=== PATIENT | male | born 1955 | race Caucasian/White ===

== ENCOUNTER 2016-12-24 21:27 | Observation (INO) | payer OTHER ==
[~2016-12-24] VITALS: Ht 170.2 cm; Wt 52.2 kg
[~2016-12-24 21:27] MED LIST: LEVO25TA50 PO
[2016-12-24] MEDS ORDERED: SOD CHLORIDE 0.9% 1,000 ML IV STA (21:58)
[2016-12-24] MEDS ORDERED: ACETAMINOPHEN 500 MG TAB PO STA (22:33)
[2016-12-24 22:44] LABS: ADD SCAN DIFF NO
[2016-12-24 22:46] LABS: BASOPHIL # 0.1 10^3/ul (0.0-0.1); BASOPHILS % 0.8 % (0.0-2.0); EOSINOPHILS # 0.1 10^3/ul (0.0-0.5); EOSINOPHILS % 1.5 % (0.0-7.0); HEMATOCRIT 37.7 % (42.0-52.0); LYMPHOCYTES # 2.9 10^3/ul (0.8-2.9); LYMPHOCYTES % 31.7 % (15.0-51.0); MEAN CORPUSCULAR HEMOGLOBIN 30.5 pg (29.0-33.0); MEAN CORPUSCULAR HGB CONC 34.5 g/dl (32.0-37.0); MEAN CORPUSCULAR VOLUME 88.5 fl (82.0-101.0); MEAN PLATELET VOLUME 9.3 fl (7.4-10.4); MONOCYTE # 0.6 10^3/ul (0.3-0.9); MONOCYTES % 6.6 % (0.0-11.0); NEUTROPHIL # 5.3 10^3/ul (1.6-7.5); PLATELET COUNT 304 10^3/UL (140-415); RED BLOOD COUNT 4.26 10^6/ul (4.70-6.10); RED CELL DISTRIBUTION WIDTH 12.8 % (11.5-14.5); WHITE BLOOD COUNT 9.1 10^3/ul (4.8-10.8)
[2016-12-24 23:02] LABS: ANION GAP 12 (8-16); BLOOD UREA NITROGEN 41 mg/dl (7-20); CALCIUM 9.5 mg/dl (8.4-10.2); CARBON DIOXIDE 29 mmol/L (21-31); CHLORIDE 102 mmol/L (97-110); CREATININE 1.63 mg/dl (0.61-1.24); GLUCOSE 152 mg/dl (70-220); POTASSIUM 3.7 mmol/L (3.5-5.1); SODIUM 139 mmol/L (135-144)
--- NOTE | 2016-12-24 23:15 | RADRPT ---
PROCEDURE: XR Chest. CLINICAL INDICATION: Syncope. TECHNIQUE: Single frontal chest x-ray. COMPARISON: Chest radiograph 11/30/2008. FINDINGS: The cardiomediastinal silhouette is unremarkable. No pneumothorax, pleural effusion or consolidation is seen. No acute osseous abnormality is noted. IMPRESSION: 1. No acute cardiopulmonary abnormality. RPTAT: HFN .Stacey Mccullough MD, Date Time Electronically viewed and signed by .Stacey Mccullough MD, on 12/24/2016 23:15 .N/
[2016-12-24 23:21] LABS: TROPONIN-I < 0.012 ng/ml (0.00-0.12)
[2016-12-24 23:25] LABS: ADD UMIC NO; URINE BILIRUBIN (Dip) NEGATIVE (NEGATIVE); URINE BLOOD (Dip) NEGATIVE (NEGATIVE); URINE COLOR YELLOW (YELLOW); URINE GLUCOSE (Dip) NEGATIVE (NEGATIVE); URINE KETONES (Dip) TRACE (NEGATIVE); URINE LEUKOCYTE ESTERASE (Dip) NEGATIVE (NEGATIVE); URINE NITRITE (Dip) NEGATIVE (NEGATIVE); URINE TOTAL PROTEIN (Dip) NEGATIVE (NEGATIVE); URINE UROBILINOGEN (Dip) 0.2 E.U./dL (0.1-1.0)
--- NOTE | 2016-12-24 23:25 | RADRPT ---
PROCEDURE: CT head, without contrast. CLINICAL INDICATION: Syncope. TECHNIQUE: Noncontrast CT examination of the head, with axial, sagittal and coronal reformatted im ages. Automated dose exposure control was employed. CTDI: 51.11 and DLP: 817.78. COMPARISON: 12/01/2018. FINDINGS: Chronic changes of atrophy and small vessel disease white matter are advanced over interval since . No acute hemorrhage. Subarachnoid spaces are substantially preserved and symmetric. Ventricles ar e unremarkable. Dystrophic calcifications again seen at barnard-white matter junction throughout the bilateral cerebral hemispheres, in the bilateral basal ganglia and throughout the bilateral cerebellum, greatest in th e cerebellum. Findings suggest manifestation of Fahr syndrome, and are without significant change ov er interval since 12/01/2008 No mass effect. Barnard-white matter distinction is preserved without evident decreased attenuation t o suggest acute or recent infarct. Sinuses and osseous structures are unremarkable. IMPRESSION: 1. Dystrophic calcifications again seen throughout the bilateral cerebral hemispheres and cerebellu m, suggesting manifestation of Fahr syndrome. 2. These findings are similar in appearance to examination dated 12/01/2008. 3. Chronic changes of atrophy and small vessel disease white matter are advanced over interval sinc e 12/01/2008. 4. Otherwise, no acute process in the head. RPTAT: UU Physician Estiven Date Time Electronically viewed and signed by Physician Estiven on 12/24/2016 23:25 RS/
--- NOTE | 2016-12-24 23:56 | ERA ---
ER Documentation Chief Complaint Date/Time DATE: 12/24/16 TIME: 23:49 Chief Complaint syncopal episodes x 2 today w/ trauma to left eye and left side head HPI This a 61-year-old male who is brought in for syncope. The patient's has a mental delay. The sister is here with the patient and she states that he was walking back from the bathroom today and got very dizzy all of a sudden started to sway back and forth and fell against the bed. He did not lose consciousness. She said a few hours later she heard him fall and she ran into the room and found him on the floor with bleeding from his scalp. The patient does not remember what happened. The patient is a poor historian. The patient is not complaining of any headache neck pain chest pain back pain abdominal pain extremity pain no focal neurological complaints. Sister says that she thinks he has been getting weaker and weaker as of lately ROS All systems reviewed and are negative except as per history of present illness. Medications Home Meds Reported Medications Levothyroxine Sodium* (Levoxyl*) 25 Mcg Tablet, 25 MCG PO AC BREAKFAST, TAB 06/09/15 Allergies Allergies: Coded Allergies: No Known Drug Allergy (Verified Allergy, Unknown, 06/09/15) PMhx/Soc History of Surgery: No Anesthesia Reaction: No Hx Neurological Disorder: No Hx Respiratory Disorders: No Hx Cardiac Disorders: No Hx Psychiatric Problems: No Hx Miscellaneous Medical Probl: No (mental problem (unspecified), kidney problem ) Hx Alcohol Use: No Hx Substance Use: No Hx Tobacco Use: No Smoking Status: Never smoker FmHx Family History: No coronary disease Physical Exam Vitals Vital Signs Date Time Temp Pulse Resp B/P Pulse Ox O2 Delivery O2 Flow Rate FiO2 12/24/16 21:53 82 16 127/84 100 Room Air 12/24/16 21:35 97.0 88 18 112/66 100 Physical Exam Const: Well-developed, well-nourished Head: Small 1 cm left vertex scalp laceration no bleeding, normocephalic Eyes: Normal Conjunctiva, PERRLA, EOMI, normal sclera, no nystagmus ENT: Normal External Ears, Nose and Mouth, moist mucus membranes. Neck: Full range of motion. No meningismus, no lymphadenopathy. Resp: Clear to auscultation bilaterally, no wheezing, rhonchi, rales Cardio: Regular rate and rhythm, no murmurs, S1 S2 present Abd: Soft, non tender x 4, non distended. Normal bowel sounds, no guarding or rebound, no pulsitile abdominal masses or bruits Skin: No petechiae or rashes, no ecchymosis , no maculopapular rash Back: No midline or flank tenderness Ext: No cyanosis, or edema, FROM x 4, normal inspection, neurovascularly intact x 4 Neur: Awake and alert, STR 5/5 x 4, sensation intact x 4, no focal findings, cerebellum intact Psych: Normal Mood and Affect Result Diagram: 12/24/16222712/24/162227 Results 24 hrs Laboratory Tests Test 12/24/16 22:06 12/24/16 22:28 Urine Color YELLOW Urine Clarity CLEAR Urine pH 5.5 Urine Specific [place] 1.025 Urine Ketones TRACE Urine Nitrite NEGATIVE Urine Bilirubin NEGATIVE Urine Urobilinogen 0.2 E.U./dL Urine Leukocyte Esterase NEGATIVE Urine Hemoglobin NEGATIVE Urine Glucose NEGATIVE% Urine Total Protein NEGATIVE White Blood Count 9.110^3/ul Red Blood Count 4.2610^6/ul Hemoglobin 13.0g/dl Hematocrit 37.7% Mean Corpuscular Volume 88.5fl Mean Corpuscular Hemoglobin 30.5pg Mean Corpuscular Hemoglobin Concent 34.5g/dl Red Cell Distribution Width 12.8% Platelet Count 86556^3/UL Mean Platelet Volume 9.3fl Neutrophils % 59.0% Lymphocytes % 31.7% Monocytes % 6.6% Eosinophils % 1.5% Basophils % 0.8% Nucleated Red Blood Cells % 0.0/100WBC Neutrophils # 5.310^3/ul Lymphocytes # 2.910^3/ul Monocytes # 0.610^3/ul Eosinophils # 0.110^3/ul Basophils # 0.110^3/ul Nucleated Red Blood Cells # 0.010^3/ul Sodium Level 139mmol/L Potassium Level 3.7mmol/L Chloride Level 102mmol/L Carbon Dioxide Level 29mmol/L Anion Gap 12 Blood Urea Nitrogen 41mg/dl Creatinine 1.63mg/dl Glucose Level 152mg/dl Calcium Level 9.5mg/dl Troponin I < 0.012ng/ml Current Medications Medications (Trade) Dose Ordered Sig/Emmett Route PRN Reason Start Time Stop Time Status Last Admin Dose Admin Sodium Chloride (NS) 1,000 ml @ 1,000 mls/hr Q1H STAT IV 12/24/16 21:58 12/24/16 22:57 DC 12/24/16 22:35 Acetaminophen (Tylenol Tab) 1,000 mg ONCE STAT PO 12/24/16 22:33 12/24/16 22:38 DC 12/24/16 22:47 Procedures/MDM Laceration Repair by me: Anesthesia: 1% lidocaine locally Location: Scalp Tendon/Joint/Nerves: No injury Foreign body: None detected after copious irrigation and exploration Technique: Staple 1 Complexity: No subcutaneous sutures/mucosal repair/ edge excision Post Closure Length: 1] cm Patient's bleeding was easily controlled in the department and there is no indication of anemia. No evidence of compartment syndrome, neurologic injury, vascular injury, open joint, tendon laceration, or foreign body. Patient is appropriate for outpatient follow up. 48 hour wound check. Scar minimization instructions given. PROCEDURE: CT head, without contrast. CLINICAL INDICATION: Syncope. TECHNIQUE: Noncontrast CT examination of the head, with axial, sagittal and coronal reformatted images. Automated dose exposure control was employed. CTDI: 51.11 and DLP: 817.78. COMPARISON: 12/01/2018. FINDINGS: Chronic changes of atrophy and small vessel disease white matter are advanced over interval since 12/01/2008. No acute hemorrhage. Subarachnoid spaces are substantially preserved and symmetric. Ventricles are unremarkable. Dystrophic calcifications again seen at barnard-white matter junction throughout the bilateral cerebral hemispheres, in the bilateral basal ganglia and throughout the bilateral cerebellum, greatest in the cerebellum. Findings suggest manifestation of Fahr syndrome, and are without significant cell changer interval since 12/01/2008 No mass effect. Barnard-white matter distinction is preserved without evident decreased attenuation to suggest acute or recent infarct. Sinuses and osseous structures are unremarkable. IMPRESSION: 1. Dystrophic calcifications again seen throughout the bilateral cerebral hemispheres and cerebellum, suggesting manifestation of Fahr syndrome. 2. These findings are similar in appearance to examination dated 12/01/2008. 3. Chronic changes of atrophy and small vessel disease white matter are advanced over interval since 12/01/2008. 4. Otherwise, no acute process in the head. RPTAT: UU Physician Estiven Date Time Electronically viewed and signed by Physician Estiven on 12/24/2016 23:25 RS/ CC: HAVEN MOORE DO PROCEDURE: XR Chest. CLINICAL INDICATION: Syncope. TECHNIQUE: Single frontal chest x-ray. COMPARISON: Chest radiograph 11/30/2008. FINDINGS: The cardiomediastinal silhouette is unremarkable. No pneumothorax, pleural effusion or consolidation is seen. No acute osseous abnormality is noted. IMPRESSION: 1. No acute cardiopulmonary abnormality. RPTAT: HFN .Stacey Mccullough MD, MD Date Time Electronically viewed and signed by .Stacey Mccullough MD, on 12/24/2016 23: 15 .N/ CC: HAVEN MOORE DO EKG: Rate/Rhythm: Normal sinus rhythm, incomplete right bundle branch block QRS, ST, T-waves: No changes consistent w/ acute ischemia Impression: No evidence of ischemia or arrhythmia Patient's syncopal symptoms are unstable at this time and require inpatient workup. No evidence of PE or dissection at this time but occult ischemia or fatal dysrhythmia cannot be ruled out. Departure Diagnosis: Primary Impression: Syncope Qualified Code: R55 - Syncope, unspecified syncope type Condition: Stable HAVEN MOORE DO Dec 24, 2016 23:56
[2016-12-24] MEDS ORDERED: SOD CHLORIDE 0.9% 1,000 ML IV SCH (23:57)
[2016-12-25] VITALS (12 sets, daily range): BP systolic 114–150; BP diastolic 67–72; PULSE 58–72; RESP 17–20; Ht 170.2 cm; Wt 52.2 kg
[2016-12-25] MEDS ORDERED: ACETAMINOPHEN 325 MG TAB PO PRN
[2016-12-25] MEDS ORDERED: morphine 2 MG INJ IV PRN (02:00)
[2016-12-25] MEDS ORDERED: LORAZEPAM 2 MG INJ IV PRN (02:00)
[2016-12-25] MEDS ORDERED: ONDANSETRON 4 MG INJ IV PRN ×2 (02:00)
[2016-12-25] MEDS: ACETAMINOPHEN 325 MG TAB PO PRN (02:24)
[2016-12-25 07:59] LABS: ADD SCAN DIFF NO
[2016-12-25 08:05] LABS: BASOPHIL # 0.1 10^3/ul (0.0-0.1); BASOPHILS % 0.5 % (0.0-2.0); EOSINOPHILS # 0.1 10^3/ul (0.0-0.5); EOSINOPHILS % 1.5 % (0.0-7.0); HEMATOCRIT 35.9 % (42.0-52.0); HEMOGLOBIN 11.9 g/dl (14.0-18.0); LYMPHOCYTES # 2.4 10^3/ul (0.8-2.9); LYMPHOCYTES % 25.6 % (15.0-51.0); MEAN CORPUSCULAR HEMOGLOBIN 29.7 pg (29.0-33.0); MEAN CORPUSCULAR HGB CONC 33.1 g/dl (32.0-37.0); MEAN CORPUSCULAR VOLUME 89.5 fl (82.0-101.0); MEAN PLATELET VOLUME 9.5 fl (7.4-10.4); MONOCYTE # 0.5 10^3/ul (0.3-0.9); MONOCYTES % 5.2 % (0.0-11.0); NEUTROPHIL # 6.3 10^3/ul (1.6-7.5); NEUTROPHILS % 66.9 % (39.0-77.0); PLATELET COUNT 262 10^3/UL (140-415); RED BLOOD COUNT 4.01 10^6/ul (4.70-6.10); WHITE BLOOD COUNT 9.5 10^3/ul (4.8-10.8)
[2016-12-25 08:32] LABS: ALBUMIN 3.8 g/dl (3.3-4.9); ALBUMIN/GLOBULIN RATIO 1.46; BILIRUBIN,INDIRECT 0.5 mg/dl (0-1.1); BILIRUBIN,TOTAL 0.5 mg/dl (0.2-1.3); CREATININE 1.39 mg/dl (0.61-1.24); MAGNESIUM 1.6 mg/dl (1.7-2.5); PHOSPHORUS 4.2 mg/dl (2.5-4.9); POTASSIUM 3.7 mmol/L (3.5-5.1); TOTAL PROTEIN 6.4 g/dl (6.1-8.1)
[2016-12-25] MEDS: LEVOTHYROXINE 25 MCG TAB PO SCH (08:38)
[2016-12-25] MEDS: FAMOTIDINE 20 MG INJ IV SCH (08:38)
--- NOTE | 2016-12-25 12:29 | PN ---
Date/Time of Note Date/Time of Note DATE: 12/25/16 TIME: 12:24 Assessment/Plan VTE Prophylaxis VTE Prophylaxis Intervention: ambulation Lines/Catheters IV [facility] [facility] Urinary Cath still in place: No Assessment/Plan Chief Complaint/Hosp Course Assessment 1. Syncopal episode versus mechanical fall 2. Laceration to scalp status post single staple 3. History of mental disability Plan 1. Ambulate 2. Neurology evaluation, evaluation of CT brain questionable Fahr Syndrome. Disposition Anticipate discharge once cleared by neurology Home health evaluation Primary care physician to remove scalp staple Problems: Subjective 24 Hr Interval Summary Free Text/Dictation Patient is awake alert oriented this morning comfortable at rest no acute distress. Family at bedside. Upon further questioning patient appears to be having mechanical falls with subsequent recent laceration to his scalp. Exam/Review of Systems Vital Signs Vitals Vital Signs Date Time Temp Pulse Resp B/P Pulse Ox O2 Delivery O2 Flow Rate FiO2 12/25/16 12:05 72 12/25/16 11:41 98.6 20 127/72 100 12/25/16 00:25 Room Air Intake and Output 12/24/16 12/24/16 12/25/16 15:00 23:00 07:00 Intake Total 200 ml Output Total 250 ml Balance -50 ml Exam GENERAL: Well-nourished well-developed gentleman complete rest no acute distress VITAL SIGNS: per chart NECK: Supple. No JVD or lymphadenopathy. CARDIAC EXAM: S1, S2. No added sounds or murmurs. CHEST: clear bilaterally, No added sounds, rales or wheezes ABDOMEN: Soft, nontender. No guarding or rebound. EXTREMITIES: No cyanosis, clubbing or edema. NEUROLOGIC: Generalized weakness. No focal deficits. Results Result Diagram: 12/25/1671912/25/16 07 Results 24 hrs Laboratory Tests Test 12/24/16 22:06 12/24/16 22:28 12/25/16 07:20 Urine Color YELLOW Urine Clarity CLEAR Urine pH 5.5 Urine Specific [place] 1.025 Urine Ketones TRACE Urine Nitrite NEGATIVE Urine Bilirubin NEGATIVE Urine Urobilinogen 0.2 E.U./dL Urine Leukocyte Esterase NEGATIVE Urine Hemoglobin NEGATIVE Urine Glucose NEGATIVE Urine Total Protein NEGATIVE White Blood Count 9.1 9.5 Red Blood Count 4.26 L 4.01 L Hemoglobin 13.0 L 11.9 L Hematocrit 37.7 L 35.9 L Mean Corpuscular Volume 88.5 89.5 Mean Corpuscular Hemoglobin 30.5 29.7 Mean Corpuscular Hemoglobin Concent 34.5 33.1 Red Cell Distribution Width 12.8 13.0 Platelet Count 304 262 Mean Platelet Volume 9.3 9.5 Neutrophils % 59.0 66.9 Lymphocytes % 31.7 25.6 Monocytes % 6.6 5.2 Eosinophils % 1.5 1.5 Basophils % 0.8 0.5 Nucleated Red Blood Cells % 0.0 0.0 Neutrophils # 5.3 6.3 Lymphocytes # 2.9 2.4 Monocytes # 0.6 0.5 Eosinophils # 0.1 0.1 Basophils # 0.1 0.1 Nucleated Red Blood Cells # 0.0 0.0 Sodium Level 139 138 Potassium Level 3.7 3.7 Chloride Level 102 108 Carbon Dioxide Level 29 24 Anion Gap 12 10 Blood Urea Nitrogen 41 H 31 H Creatinine 1.63 H 1.39 H Glucose Level 152 104 # Calcium Level 9.5 9.0 Troponin I < 0.012 Phosphorus Level 4.2 Magnesium Level 1.6 L Total Bilirubin 0.5 Direct Bilirubin 0.00 Indirect Bilirubin 0.5 Aspartate Amino Transf (AST/SGOT) 22 Alanine Aminotransferase (ALT/SGPT) 26 Alkaline Phosphatase 99 Total Protein 6.4 Albumin 3.8 Globulin 2.60 Albumin/Globulin Ratio 1.46 Medications Medications Current Medications Atorvastatin Calcium (Lipitor) 20 mg HS PO ; Start 12/25/16 at 21:00 Famotidine (Pepcid Iv) 20 mg DAILY IV Last administered on 12/25/16 08:38; Admin Dose 20 MG; Start 12/25/16 at 09:00 Lorazepam (Ativan) 1 mg Q3 PRN IV ANXIETY; Start 12/25/16 at 02:00 Acetaminophen (Tylenol Tab) 650 mg Q6H PRN PO PAIN AND OR ELEVATED TEMP Last administered on 12/25/16 02:24; Admin Dose 650 MG; Start 12/25/16 at 02:00 Morphine Sulfate (morphine) 2 mg Q4H PRN IV Pain; Start 12/25/16 at 02:00 Ondansetron HCl (Zofran Inj) 4 mg Q6H PRN IV NAUSEA AND/OR VOMITING; Start 12/25 at 02:00 CRISTIANA HENSON MD, FCCP December 25, 2016 12:29
[2016-12-25] MEDS ORDERED: ATORVASTATIN 20 MG TAB PO SCH (21:00)
--- NOTE | 2016-12-25 21:53 | RADRPT ---
PROCEDURE: Carotid ultrasound CLINICAL INDICATION: Syncope, carotid bruits TECHNIQUE: Barnard scale, color doppler, spectral doppler ultrasound of the bilateral carotid and marci tebral arteries. This study indirectly references the measurement of the distal ICA diameter as the denominator for s tenosis measurement. Validated velocity measurements with angiographic measurements, velocity criter ia are extrapolated from diameter data as defined by: *Cartoid artery stenosis: barnard-scale and Doppl er US diagnosis. Society of Radiologists in Ultrasound Consensus Conference. Radiology 2003; 229: 34 0-346. SRU Consensus Conference Criteria for the Diagnosis of Carotid Artery Stenosis* Degree of Stenosis, % ICA PSV, cm/sec Plaque Estimate, % ICA/CCA PSV Ratio Normal <125 None <2.0 <50 <125 <50 <2.0 50 69 125-230 >50 2.0-4.0 >70 but less than near occlusion >230 >50 <4.0 Near occlusion High, low, or undetectable Visible Variable Total occlusion Undetectable Visible, no detectable lumen Not applicable COMPARISON: No prior studies are available for comparison. FINDINGS: Location Right CCA54 cm/sec Prox ICA 33 cm/sec Mid ICA48 cm/sec Dist ICA39 cm/sec ECA35 cm/sec ICA/CCA0.9 Left CCA56 cm/sec Prox ICA 47 cm/sec Mid ICA41 cm/sec Dist ICA45 cm/sec ECA35 cm/sec ICA/CCA0.8 Plaque burden: No significant plaque is seen. Antegrade flow is seen within the vertebral arteries bilaterally. IMPRESSION: No evidence of a hemodynamically significant carotid stenosis. RPTAT: AADD .Patricio Vickers MD, Date Time Electronically viewed and signed by .Patricio Vickers MD, MD on 12/25/2016 21:53 .B/
[2016-12-26] VITALS (8 sets, daily range): BP systolic 93–136; BP diastolic 55–77; PULSE 56–75; RESP 18–20
--- NOTE | 2016-12-26 00:02 | CONS ---
DATE OF ADMISSION: 12/24/2016 DATE OF CONSULTATION: 12/25/2016 TYPE OF CONSULTATION: Neurology Thank you, Dr. Darby, for your kind referral for evaluation of syncope and fall with blunt head trauma . 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 Apparently, he was walking from the bathroom today and felt dizzy, fell and hit his head against the ____. It is not clear if he lost consciousness or not. No similar episodes happe isabella in the past. The patient has laceration of the left parietal scalp, which required stapling. 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 According to e family, the patient's sister who is present at bedside, he does not eat very well and says he is s pent a lot of time outside and they suspected he was dehydrated. The patient denied any dizziness currently. He complains of mild occasional headaches. His EKG carlos wed sinus rhythm, 78 beats per minute. His chest x-ray: No abnormality. LABORATORY DATA: Hemoglobin 11.9, hematocrit 35.9. Platelets and WBC is within normal limits. BUN on admission 41, creatinine 1.63. With hydration, BUN 31, creatinine 1.39. Rest of comprehensive metabolic panel within normal limits. Troponins negative. Normal urinalysis. MEDICATIONS PRIOR TO ADMISSION: On l-thyroxine. PAST MEDICAL HISTORY: Apparently, his past medical history is significant for hypothyroidism. ALLERGIES: NONE. SOCIAL HISTORY: No alcohol, tobacco, drug use. FAMILY HISTORY: Noncontributory. CURRENT MEDICATIONS: 1. Lipitor 20. 2. Pepcid. 3. Synthroid. 4. Pain killers p.r.n. REVIEW OF SYSTEMS: All pertinent positives included in the above history of present illness. PHYSICAL EXAMINATION: VITAL SIGNS: Temperature 98.2, 65 pulse, 20 respirations, 150/72 blood pressure. GENERAL: Not in acute distress, lying in bed. HEENT: Normocephalic. Status post left parietal laceration status post a stapling. NECK: Supple. No meningeal signs. No carotid bruits. LUNGS: Clear to auscultation bilaterally. CARDIAC: Normal cardiac rhythm and sounds. ABDOMEN: Soft, nontender. EXTREMITIES: No cyanosis, clubbing, or edema. NEUROLOGIC: He is awake, alert, and oriented x2 with fluent speech. Cranial nerve examination show s intact visual khan bilaterally. Pupils round, reactive to light from 4 to 2 mm bilaterally. Ex traocular movements intact without nystagmus. Symmetrical face. Preserved facial strength and sens ation. Tongue is in midline. Palate elevates symmetrically. Motor strength examination preserved in all extremities. Normal bulk, tone, and strength. Sensory examination intact to light touch and pain. Deep tendon reflexes 2+ throughout. Downgoing toes bilaterally. Coordination preserved on [id number] testing. No dysmetria or tremor. Gait was not assessed. According to the family members, patient has no problem ambulating. He is not ataxic and does not require any assistive dev ice. IMPRESSION: Status post fall, not clear if secondary to dizziness or he fainted. For further evalu ation, I will obtain carotid ultrasound, echocardiogram. His CAT scan shows multiple areas of calci fication of the brain, but stable for 7 or 8 years. The patient is on telemetry, so possible dizzin ess would be picked up as well. Continue current treatment. He has renal insufficiency, plus/minus dehydration, probably that was the etiology of his dizziness, possible syncope. Dictated By: LUCIANA BRITTON/YEIMY Conf#: [id number] DID#: [id number] CC: MITESH MAN MD; PRIYA DARBY MD;*End*
[2016-12-26] MEDS: ACETAMINOPHEN 325 MG TAB PO PRN (07:53)
[2016-12-26] MEDS: LEVOTHYROXINE 25 MCG TAB PO SCH (07:53)
[2016-12-26] MEDS: FAMOTIDINE 20 MG INJ IV SCH (08:00)
--- NOTE | 2016-12-26 11:24 | PDOCDIS ---
Discharge Instructions DIAGNOSIS Discharge Diagnosis: syncope CONDITION Patient Condition: Good HOME CARE INSTRUCTIONS: Diet Instructions: RegularSpecial Diet: 2 Gm NA ACTIVITY: Activity Restrictions: No Restrictions FOLLOW UP/APPOINTMENTS Appointments Dr García 1 week CRISTIANA HENSON MD, [facility] December 26, 2016 11:24
--- NOTE | 2016-12-26 12:58 | DS ---
DATE OF ADMISSION: 12/24/2016 DATE OF DISCHARGE: 12/26/2016 HOSPITAL COURSE: This is a 61-year-old gentleman with multiple medical problems admitted with what appears to be a syncopal episode, sustaining a laceration to his scalp with a history of learning di sability. According to family, patient had a mechanical fall, tripped and fell, hit his head with n o loss of consciousness. Vital signs were stable. CT of the head was performed on admission and wa s unremarkable for acute bleed. It did, however, suggest bilateral cerebral dystrophic calcificatio ns suggestive of Fahr syndrome. These are similar to findings on CT scan of 2008. The patient made a good recovery during this admission had no focal deficits. Occasional headache over the lacerati on site. He was ambulating safely without risk of fall. DISCHARGE MEDICATIONS: Levothyroxine 25 mcg p.o. daily. DISCHARGE FOLLOWUP: With his primary care physician, Dr. García. CONDITION ON DISCHARGE: Stable. ACTIVITY: As tolerated. Dictated By: CRISTIANA LOZANO/YEIMY Conf#: [id number] DID#: [id number]
--- NOTE | 2016-12-26 13:11 | RADRPT ---
Echocardiogram Report Patient Name: MIMI HOLGUIN Gender: Male Date: 1955 Study Date: 26-Dec-2016 Blackjack Pit Boss: Americo Ruiz [facility] [place] Location: [id number] Ref. Physician: LUCIANA WILSON Quality: Adequate Procedures: Transthoracic echocardiogram with complete 2D, M-Mode, and doppler examination. Indications: Syncope. 2D/M Mode Doppler Measurement Value Normal Ranges Measurement Value Normal Ranges LVIDd 2D 4.1 3.5 - 5.6 cm TIGRE Vmax 2.2 cm2 LVIDs 2D 2.7 2.1 - 4.1 cm AV Peak Ramsey 1.6 m/sec FS 2D 32.8 % AV Peak PG 10.0 mmHg LVPWd 2D 0.7 0.6 - 1.1 cm LVOT Peak Ramsey 0.9 m/sec IVSd 2D 0.7 0.6 - 1.1 cm LVOT Peak PG 3.0 mmHg IVS/LVPW 2D 1.0 MV E Peak Ramsey 0.7 m/sec AoR Diam 2D 2.7 2.0 - 3.7 cm MV A Peak Ramsey 0.9 m/sec LA/Ao 2D 1 0 - 1 MV E/A 0.8 EDV 2D 66.9 cm3 MV Decel Time 246 msec ESV 2D 20.3 cm3 MV E/A 0.8 LA Dimen 2D 2.4 2.3 - 4.0 cm TR Peak Ramsey 2.2 m/sec LVOT Diam 2.2 cm TR Peak PG 20.0 mmHg LVOT Area 3.8 cm2 RVSP 23.0 mmHg Findings Left Ventricle: Normal left ventricular systolic function. Normal left ventricular cavity size. Normal left ventricular wall thickness. Ejection fraction is visually estimated at 55 %. Tissue Doppler/Mitral Doppler indices are consistent with impaired relaxation (Stage I diastolic dysfunction). Right Ventricle: Normal right ventricular size. Normal right ventricular systolic function. Left Atrium: The left atrium is normal in size. Right Atrium: The right atrium is normal in size. Mitral Valve: Mitral valve leaflets appear mildly thickened. Mild mitral annular calcification. Mild mitral valve regurgitation. Aortic Valve: Normal appearance of the aortic valve. No significant aortic stenosis or insufficiency. Tricuspid Valve: Normal appearance and function of the tricuspid valve with trace physiologic regurgitation. Normal right ventricular systolic pressure. Estimated peak PA systolic pressure 23 mmHg. Pulmonic Valve: Normal pulmonic valve appearance. Pericardium: Normal pericardium with no significant pericardial effusion. Aorta: Normal aortic root. IVC: Normal size and normal respiratory collapse consistent with normal right atrial pressure. Conclusions 1.Normal left ventricular systolic function. Normal left ventricular cavity size. Normal left ventricular wall thickness. Ejection fraction is visually estimated at 55 %. Tissue Doppler/Mitral Doppler indices are consistent with impaired relaxation (Stage I diastolic dysfunction). 2.Mitral valve leaflets appear mildly thickened. Mild mitral annular calcification. Mild mitral valve regurgitation. 3.Normal appearance of the aortic valve. No significant aortic stenosis or insufficiency. 4.Normal appearance and function of the tricuspid valve with trace physiologic regurgitation. Normal right ventricular systolic pressure. Estimated peak PA systolic pressure 23 mmHg. Electronically Signed By: Dirk Paniagua 26-Dec-2016 13:10:10 -0700 Patient Name: MIMI HOLGUIN Study Date: 26-Dec-2016 [id number]
== END 2016-12-26 14:30 | disposition home or self-care (01) ==
LOC: E/R 21:27 → MS4 23:58
PROVIDERS: ADMIT Internal Medicine; ATTEND Internal Medicine
DX: R55 Syncope and collapse (principal); S01.01XA Laceration without foreign body of scalp, initial encounter; W19.XXXA Unspecified fall, initial encounter; Y92.89 Other specified places as the place of occurrence of the external cause; F79 Unspecified intellectual disabilities
CPT/HCPCS: 12001; 70450; 71010; 80048; 80053; 81003; 83735; 84100; 84484; 85025; 93005; 93306; 93880; 96374; J7030; Z7500; Z7502; Z7610; G0378

== ENCOUNTER 2017-01-09 17:06 | Emergency (ER) | payer OTHER ==
[~2017-01-09] VITALS: Ht 170.2 cm; Wt 53.0 kg
[2017-01-09 17:22] VITALS: Ht 170.2 cm; Wt 53.0 kg
--- NOTE | 2017-01-09 17:39 | ERA ---
ER Documentation Chief Complaint Date/Time DATE: 01/09/17 TIME: 17:36 Chief Complaint HERE FOR STAPLE REMOVAL (SCALP) HPI Patient presents to get one staple taken out of his head. Reports no complications. Has no other complaints at this time. ROS All systems reviewed and are negative except as per history of present illness. Medications Home Meds Reported Medications Levothyroxine Sodium* (Levoxyl*) 25 Mcg Tablet, 25 MCG PO AC BREAKFAST, TAB 06/09/15 Allergies Allergies: Coded Allergies: No Known Drug Allergy (Verified Allergy, Unknown, 06/09/15) PMhx/Soc History of Surgery: No Anesthesia Reaction: No Hx Neurological Disorder: No Hx Respiratory Disorders: No Hx Cardiac Disorders: No Hx Psychiatric Problems: Yes (moderate mental retardation) Hx Miscellaneous Medical Probl: No Hx Alcohol Use: Yes Hx Substance Use: No Hx Tobacco Use: No Physical Exam Vitals Vital Signs Date Time Temp Pulse Resp B/P Pulse Ox O2 Delivery O2 Flow Rate FiO2 01/09/17 17:22 97.7 72 14 137/66 100 Physical Exam Const: Healthy thin appearing 61-year-old male. Head: 1 staple on the superior aspect of the head just lateral and anterior to the midpoint. Eyes: Normal Conjunctiva ENT: Normal External Ears, Nose and Mouth. Neck: Full range of motion..~ No meningismus. Resp: Clear to auscultation bilaterally Cardio: Regular rate and rhythm, no murmurs Abd: Soft, non tender, non distended. Normal bowel sounds Skin: No petechiae or rashes. No edema or bruising. Back: No midline or flank tenderness Ext: No cyanosis, or edema Neur: Awake and alert Psych: Normal Mood and Affect Procedures/MDM Patient had one staple removed from the superior aspect of the scalp. There is no signs of infection noted. Patient is stable and has no complaints. Will discharge the patient with instructions and return precautions as well as advised to continue to clean the area with soap and water as necessary. Departure Diagnosis: Primary Impression: Encounter for removal of janice Condition: Stable Patient Instructions: Staple Removal, No Complication Additional Instructions: Return to emergency department or seek medical care from primary care physician if symptoms arise. Wash with water and soap. LUPE ESPINOZA PA-C January 09, 2017 17:38
== END 2017-01-09 17:36 | disposition home or self-care (01) ==
LOC: E/R 17:06
DX: Z48.02 Encounter for removal of sutures (principal)

== ENCOUNTER 2017-11-29 16:35 | Emergency (ER) | END 2017-11-29 23:25 | disposition home or self-care (01) ==